=== PATIENT | female | born 1965 ===

== ENCOUNTER 2023-06-10 20:41 | Emergency (ER) | payer OTHER, SELFPAY ==
[2023-06-10 20:48] VITALS: BP 122/71; PULSE 74; RESP 16; TEMP 36.2; O2SAT 98; BMI 21.5
--- NOTE | 2023-06-10 22:39 | ED_ITS ---
HPI - General Adult General Chief complaint: General Medical Stated complaint: bloody nose for 30mins Time Seen by Provider: 06/10/23 22:15 Source: patient and family Mode of arrival: ambulatory Limitations: no limitations History of Present Illness HPI narrative: 57 yo female takes a baby aspirin but no blood thinners here with c/o bloody nose initially from R then to L - continued as she kept blowing clots out of her nose. No trauma or history of this no known bleeding disoders. stopped while in waiting room. MD complaint: epistaxis Onset (ago): hour(s) (1) Location: face Radiation: non-radiation Severity: moderate Relieving factors: other (applying pressure) Exacerbating factors: other (blowing nose) Associated symptoms: denies other symptoms Treatments prior to arrival: none Related Data Allergies Allergy/AdvReac Type Severity Reaction Status Date / Time cefaclor [From Ceclor] Allergy Mild Rash Verified 06/10/23 20:57 codeine Allergy Vomiting Verified 06/10/23 20:57 apricots Allergy Rash Uncoded 06/10/23 20:57 Review of Systems 2 Review of Systems: Constitutional : No Fever, No Chills ENT/Mouth : No Ear Pain, No Nasal Congestion, positive nose bleed Eyes: No Eye Pain, No Swelling, No Redness Cardiovascular : No Chest Pain, No SOB Respiratory : No Cough, No Sputum Gastrointestinal : No Nausea, No Vomiting, No Diarrhea Genitourinary : No Dysuria, No Hematuria Musculoskeletal : No joint pain, No Myalgias Skin : No Skin Lesions, No rash Neuro : No Weakness, No Numbness, No headache Psych : No Anxiety/Panic, No Depression All other systems reviewed and are negative [facility] Past Medical History Attestation statement: The following information was validated with the patient. Medical History Multiple sclerosis Social History Social History (Updated 06/10/23 @ 22:47 by Marina Haider DO) Alcohol intake: current Alcohol intake frequency: 0-2 drinks per day Alcohol type: wine Patient Tobacco Use Status: Tobacco use Unknown Smoked in Last 30 Days: Yes Use of substances other than those prescribed or required for medical reasons: No Advance Directives: No Advance Directives Information Provided: No Patient : No Physical Exam ED Vital Signs: Vital Signs - 24 hr 06/10/23 20:48 06/10/23 23:30 Temperature 97.1 F 98.4 F Pulse Rate 74 57 Respiratory Rate 16 16 Blood Pressure 122/71 131/72 Pulse Oximetry 98 98 Oxygen Delivery Method Room Air Room Air BMI result Body Mass Index 21.5 Appearance: Alert. Oriented X3. No acute distress. Eyes: Pupils equal, round and reactive to light. ENT: Pharynx normal no blood in oropharynx, L nares no blood noted, R nares mid septum there is small crack and bloody area noted with raised bump noted ?source otherwise no other area noted, no active bleeding seen Neck: Normal inspection. Neck supple. CVS: Normal heart rate and rhythm. Pulses normal. Respiratory: No respiratory distress. Breath sounds normal. Abdomen: Soft and non-tender. Skin: Skin warm and dry. Normal skin color. Extremities: No lower extremity edema. Neuro: Oriented X 3. No motor deficit. No sensory deficit. Course Course Course Narrative: doing well no further bleeding, BP stable Medications Administered Discontinued Medications Generic Name Dose Route Start Last Admin Trade Name Shyanne PRN Reason Stop Dose Admin Oxymetazoline HCl 2 spray 06/10/23 22:31 06/10/23 23:02 Oxymetazoline Hcl 0.05 % Nasal 15 Ml Blue NOSTRIL-B 06/10/23 22:32 2 spray ONCE ONE Administration Silver Nitrate 1 appl 06/10/23 22:31 06/10/23 23:03 Silver Nitrate Applicator Stick..Ea. TOPICAL 06/10/23 22:32 1 appl ONCE ONE Administration Procedures Epistaxis Control Time Out Performed: Yes Nostril: Yes right Nose prepped with: Yes oxymetazoline Direct inspection: Yes anterior source identified Direct inspection method: Yes nasal rhinoscope Epistaxis treatment: Yes silver nitrate cautery Results of treatment: Yes bleeding controlled and Yes treatment well tolerated Complications: Yes none Medical Decision Making Medical Decision Making MDM Narrative: 57 yo female with hx of MS who takes a baby ASA but no thinners here with R sided bloody nose that his now resolved - there is a site on the septum that I think is the source at this time will apply afrin and cauterize - will obtain CBC and INR. monitor and instruct no further nose bleeds. She does not report any shooting of blood across the room or blood coming out of mouth to suggest brisk posterior bleed. Differential Diagnosis Differential Diagnoses: The differential diagnosis associated with the presentation includes anterior epistaxis, posterior epistaxis, low platelets Admission/Observation Consideration of admission/observation: Escalation of care including admission/observation considered stable VS, labs stable, bleeding stopped can be observed as outpatient Lab Data MDM Lab Attestation statement: I reviewed the patient's lab results. 06/10/23 22:48 Labs: Lab Results 06/10/23 06/10/23 Range/Units 22:47 22:48 WBC 7.8 (4.8-10.8) X10*3/uL RBC 3.96 L (4.20-5.50) X10*6/uL Hgb 13.0 (12.0-16.0) g/dl Hct 38.9 (37.0-47.0) % MCV 98.2 H (80.0-98.0) fL MCH 32.8 (27.0-33.0) pg MCHC 33.4 (31.0-35.0) g/dl RDW 12.2 (11.0-16.0) % Plt Count 275 (160-400) X10*3/uL MPV 9.7 (9.4-12.3) fL Absolute Nucleated RBC 0.000 (0.0-0.012) X10*3/uL Nucleated RBC % (auto) 0.0 (0.0-0.2) /100WBC PT 12.1 (11.1-13.3) SEC INR 1.0 (0.9-1.1) Independent Historian Clinical information obtained from an independent historian. History obtained from or confirmed by: Friend Discharge Plan Discharge Clinical Impression: Acute anterior epistaxis Patient Disposition: Home, Self-Care Instructions: Nosebleed (ED) Additional Instructions: no aspirin for 3 days. no nose blowing for 3 days. hold pressure for 3 minutes if bleeding starts. return for worsening bleeding, dizziness, chest pain, trouble breathing, severe headaches. you can follow up with ENT as needed if you get recurrent nose bleeds. blood counts and coags normal Referrals: Tommy Nazario [Physician] - 2 weeks (as needed)
[2023-06-10 22:57] LABS: Hematocrit 38.9 % (37.0-47.0); Mean Corpuscular HGB Conc 33.4 g/dl (31.0-35.0); Mean Corpuscular Hemoglobin 32.8 pg (27.0-33.0); Mean Corpuscular Volume 98.2 fL (80.0-98.0); Mean Platelet Volume 9.7 fL (9.4-12.3); Platelet Count 275 X10*3/uL (160-400); Red Blood Count 3.96 X10*6/uL (4.20-5.50); Red Cell Distribution Width 12.2 % (11.0-16.0); White Blood Count 7.8 X10*3/uL (4.8-10.8)
[2023-06-10] MEDS: Oxymetazoline HCl 0.05 % Nasal 15 ML SPRAY 2 SPRAY NOSTRIL-B (23:02)
[2023-06-10] MEDS: Silver Nitrate Applicator STICK..EA. 1 APPL TOPICAL (23:03)
[2023-06-10 23:30] VITALS: BP 131/72; PULSE 57; RESP 16; TEMP 36.9; O2SAT 98
--- NOTE | 2023-06-10 23:32 | MHC.EDTECH ---
THIS PCT JUST ASSUMED CARE OF PT ,VITALS SIGN TAKEN ,PT HAS A VISITOR AT BED SIDE .
[2023-06-10 23:40] LABS: Prothrombin Time 12.1 SEC (11.1-13.3)
== END 2023-06-10 23:52 | disposition home or self-care (01) ==
PROVIDERS: Emergency Provider Emergency Medicine; PCP Internal Medicine
DX: R04.0 Epistaxis (principal); Z79.899 Other long term (current) drug therapy
CPT/HCPCS: 30901; 36415; 85027; 85610; 99284

== ENCOUNTER 2023-06-30 21:57 | Inpatient (IN) | payer OTHER, SELFPAY ==
--- NOTE | 2023-06-30 | ECG_ITS ---
Test Reason : CP Blood Pressure : / mmHG Vent. Rate : 103 BPM Atrial Rate : 103 BPM P-R Int : 138 ms QRS Dur : 100 ms QT Int : 330 ms P-R-T Axes : 018 -42 019 degrees QTc Int : 432 ms Sinus tachycardia Left anterior fascicular block Low voltage QRS Incomplete right bundle branch block Cannot rule out Anterior infarct , age undetermined Abnormal ECG No previous ECGs available Referred By: Generic ED Physician Electronically Signed By:ALIZA ACUÑA MD
--- NOTE | ~2023-06-30 | XR_ITS ---
EXAMINATION: XR CHEST CLINICAL INFORMATION: Pain COMPARISON: None available. TECHNIQUE: Frontal view of the chest was obtained. FINDINGS: Right mid to lower lung and left midlung left lower lung opacities may be consistent with areas of atelectasis or infiltrate. An element of interstitial edema cannot be excluded. Prominent cardiac silhouette. Ill-defined hilar structures. There is no effusion. XR/XR chest 1V IMPRESSION: Bilateral mid to lower lung opacities could be areas of atelectasis/infiltrate or possibly edema. There is congestion here centrally
--- NOTE | ~2023-06-30 | XR_ITS ---
EXAMINATION: XR CHEST CLINICAL INFORMATION: Elevated BNP COMPARISON: 06/30/2023 TECHNIQUE: Frontal view of the chest was obtained. FINDINGS: Heart size remains upper limits of normal, mediastinum unremarkable. Improved vascular congestion. Resolution right base increased markings. Persistent mild increased markings retrocardiac region. Bony structures are intact. XR/XR chest 1V IMPRESSION: Improved vascular congestion. Residual left base opacities, likely atelectasis.
--- NOTE | ~2023-06-30 | CT_ITS ---
EXAMINATION: CT HEAD WITHOUT CONTRAST CLINICAL INFORMATION: Confusion, hallucinations COMPARISON: None available. TECHNIQUE: Contiguous axial imaging was performed from the skull base to vertex without intravenous administration of contrast. This CT examination was performed using dose optimization techniques as appropriate, variously including the following: *Automated exposure control *Adjustment of mA and/or kV according to patient size (this includes techniques or standardized protocols for targeted exams where dose is matched to indication/reason for exam; i.e. extremities or head) *Use of iterative reconstruction technique DLP: 700 mGy-cm FINDINGS: There is no midline shift. There is no mass effect. There is no hemorrhage. The basal cisterns appear patent. The posterior fossa is grossly within normal limits. No extra-axial collection. The li-white matter demonstrates decreased attenuation in the white matter in the left parietal region could represent small vessel ischemic changes. Partially visualized sinuses demonstrate some mild sinus disease. CT/CT head/brain wo IV con IMPRESSION: No acute finding. Some decreased attenuation is noted in the white matter left parietal could represent small vessel ischemic change. Given the history I would consider MR to fully evaluate
[2023-06-30 23:06] VITALS: BP 100/66; PULSE 97; RESP 29; TEMP 36.8; O2SAT 95; BMI 23.9
--- NOTE | 2023-06-30 23:23 | ED_ITS ---
HPI - General Adult General Chief complaint: General Medical Stated complaint: Chest pain, COVID positive 1 week Time Seen by Provider: 06/30/23 22:43 Source: patient Mode of arrival: ambulatory Limitations: no limitations History of Present Illness HPI narrative: 58 yo female with PMH of overactive bladder, depression, HTN, GERD, MS who is vaccinated against COVID x 4 . Symptoms of COVID started on Sunday and tested positive on Sunday. Was started on paxlovid is on day 3 - states this is her 2nd round of paxlovid and tolerated it in the past. Here with c/o feeling weak, sore body her skin is hypersensitive to touch, chest tightness and feeling short of breath, she also feels off cognitively and was hallucinating last night when she thought two men were outside. Her spouse is here and is concerned - no focal deficits but she is off. MD complaint: fatigue, covid symptoms. Onset (ago): week(s) (5 but cognitive stuff started about 24 hours ago ) Radiation: non-radiation Severity: moderate Quality: aching and constant Pain Consistency: constant Relieving factors: rest Exacerbating factors: movement Associated symptoms: confusion, chest pain, loss of appetite, malaise, nausea/vomiting and weakness Treatments prior to arrival: other (paxlovid) Related Data Allergies Allergy/AdvReac Type Severity Reaction Status Date / Time cefaclor [From [facility]] Allergy Mild Rash Verified 06/10/23 20:57 codeine Allergy Vomiting Verified 06/10/23 20:57 apricots Allergy Rash Uncoded 06/10/23 20:57 Review of Systems 2 Review of Systems: Constitutional : No Fever, No Chills, pos Fatigue, pos malaise ENT/Mouth : No sore throat, No Rhinorrhea Eyes: No Eye Pain, No Swelling, No Redness Cardiovascular : pos Chest Pain, No SOB, No Dyspnea on Exertion Respiratory : pos Cough, No Sputum Gastrointestinal : pos Nausea, No Vomiting, No Diarrhea, No abdominal Pain Genitourinary : No Dysuria, No Urinary Frequency, No Hematuria, Musculoskeletal : No joint pain, No Myalgias, No Joint Swelling Skin : No Skin Lesions, No rash Neuro : pos Weakness, No Numbness, No Dizziness, positive Headache, pos confusion Psych : No Anxiety/Panic, No Depression All other systems reviewed and are negative [facility] Past Medical History Attestation statement: The following information was validated with the patient. Source: old records reviewed Medical History Multiple sclerosis Social History Social History Alcohol intake: current Alcohol intake frequency: 0-2 drinks per day Alcohol type: wine Patient Tobacco Use Status: Tobacco use Unknown Smoked in Last 30 Days: No Use of substances other than those prescribed or required for medical reasons: No Advance Directives: No Advance Directives Information Provided: Yes Patient : No Physical Exam ED Vital Signs: Vital Signs - 24 hr 06/30/23 23:06 07/01/23 01:08 07/01/23 01:22 Temperature 98.3 F Pulse Rate 97 95 Respiratory Rate 29 H 23 H Blood Pressure 100/66 95/60 Pulse Oximetry 95 85 L 87 L Oxygen Delivery Method Room Air Nasal Cannula Room Air Oxygen Flow Rate 2 07/01/23 01:24 Temperature Pulse Rate Respiratory Rate Blood Pressure Pulse Oximetry 93 Oxygen Delivery Method Nasal Cannula Oxygen Flow Rate 3 BMI result Body Mass Index 23.9 Appearance: Alert. Oriented X3. No acute distress. Eyes: Pupils equal, round and reactive to light. ENT: Pharynx normal. Neck: Normal inspection. Neck supple. CVS: Normal heart rate and rhythm. Pulses normal. Respiratory: No respiratory distress. Breath sounds rales bilaterally Abdomen: Soft and mild distention Skin: Skin warm and dry. pale skin color. Normal skin turgor. Extremities: 1+ bilateral pitting lower extremity edema. No calf ttp Neuro: Oriented X 3. No motor deficit. No sensory deficit. Medications Administered Discontinued Medications Generic Name Dose Route Start Last Admin Trade Name Freq PRN Reason Stop Dose Admin Cyclobenzaprine HCl 5 mg 07/01/23 00:46 07/01/23 00:50 Cyclobenzaprine Hcl 10 Mg Tablet PO 07/01/23 00:47 5 mg ONCE ONE Administration Furosemide 20 mg 07/01/23 00:32 07/01/23 00:48 Furosemide 20 Mg/2 Ml Vial IVPUSH 07/01/23 00:33 10 mg ONCE ONE Administration Protocol Sodium Chloride 1,000 mls @ 999 mls/hr 06/30/23 23:30 07/01/23 00:02 Ns IV 07/01/23 00:30 0 mls/hr .Q1H1M KARISHMA Infusion Ondansetron HCl 4 mg 06/30/23 23:17 06/30/23 23:27 Ondansetron Hcl 4 Mg/2 Ml Vial IVPUSH 06/30/23 23:18 4 mg ONCE ONE Administration Procedures Procedure Narrative Procedure Narrative: bedside ECHO no pericardial effusion but there is poor squeeze noted seems vasquez depressed to me Medical Decision Making Medical Decision Making [facility] Narrative: 58 yo female with PMH of overactive bladder, depression, HTN, GERD, MS who is vaccinated against COVID x 4 here with covid now with chest pain and dyspnea along with weakness, confusion, fatigue at this time basic labs, zofran, CXR, ddimer, troponin, EKG and CT head given confusion - she has no focal deficits. Differential Diagnosis Differential Diagnoses: The differential diagnosis associated with the presentation includes lyte abnormality COVID encephalopathy, dehydration, paxlovid reaction, VTE, CHF Admission/Observation Consideration of admission/observation: Escalation of care including admission/observation considered admit for new onset CHF picture Consult Healthcare Provider Management of the patient was discussed with: Hospitalist (agrees to admit) Lab Data [facility] Lab Attestation statement: I reviewed the patient's lab results. 06/30/23 23:14 06/30/23 23:14 Labs: Lab Results 06/30/23 Range/Units 23:14 WBC 10.6 (4.8-10.8) X10*3/uL RBC 3.80 L (4.20-5.50) X10*6/uL Hgb 12.0 (12.0-16.0) g/dl Hct 34.7 L (37.0-47.0) % MCV 91.3 (80.0-98.0) fL MCH 31.6 (27.0-33.0) pg MCHC 34.6 (31.0-35.0) g/dl RDW 11.9 (11.0-16.0) % Plt Count 305 (160-400) X10*3/uL MPV 9.3 L (9.4-12.3) fL Immature Gran % (Auto) 0.4 (0.0-0.4) % Neut % (Auto) 84.2 H (45-73) % Lymph % (Auto) 5.1 L (20-40) % [place] % (Auto) 9.9 (2-11) % Eos % (Auto) 0.1 (0-4) % Baso % (Auto) 0.3 (0-2) % Lymph # (Auto) 0.5 L (1.2-4.9) X10*3/uL [place] # (Auto) 1.1 (0.1-1.2) X10*3/uL Eos # (Auto) 0.0 (0.0-0.4) X10*3/uL Baso # (Auto) 0.0 (0.0-0.2) X10*3/uL Abs Immat Gran (auto) 0.04 H (0.00-0.03) X10*3/uL Absolute Neuts (auto) 8.9 H (2.0-8.3) x10*3/uL Absolute Nucleated RBC 0.000 (0.0-0.012) X10*3/uL Nucleated RBC % (auto) 0.0 (0.0-0.2) /100WBC PT 12.6 (11.1-13.3) SEC INR 1.0 (0.9-1.1) APTT 27.8 (26.0-36.4) SEC D-Dimer High Sensitivty 191 NG/ML Sodium 134 L (135-145) mmol/L Potassium 5.0 (3.3-5.1) mmol/L Chloride 100 (96-108) mmol/L Carbon Dioxide 21 L (22-29) mmol/L Anion Gap 18 (12-20) BUN 28 H (9-16) mg/dL Creatinine 0.87 (0.5-1.4) mg/dL Estim Creat Clear Calc 60.9 Estimated GFR > 60 Random Glucose 119 H (60-115) mg/dL Calcium 9.7 (8.4-10.2) mg/dL Magnesium 1.8 (1.6-2.6) mg/dL Total Bilirubin 0.4 (0.0-1.0) mg/dL AST 20 (5-31) U/L ALT 12 (0-31) U/L Alkaline Phosphatase 67 (39-117) U/L Total Creatine Kinase 73 (26-140) U/L Troponin I High Sens 23.8 H (<3.5-17.0) ng/L B-Natriuretic Peptide 1174 H (<100) pg/mL Total Protein 7.2 (6.5-8.0) g/dL Albumin 4.0 (3.5-5.0) g/dL COVID-19 (CHARLINE) Positive A (Negative) COVID-19 Clin Com See Note Independent Interpretation I performed an independent interpretation of an: EKG, Plain X-Ray (edema) and CT Scan (no ICH) Interpretation: Rate: 103 Rhythm: sinus tach [place]: left Normal P waves. Normal SHIVA. incomplete RBBB ST T wave : normal no REED , q waves inf leads qTC: normal prior studies: no acute ischemia The study has been interpreted contemporaneously by me. . Radiology Impression Discussion of test interpretation with radiology: I have reviewed the radiologist's reading. Independent Historian Clinical information obtained from an independent historian. History obtained from or confirmed by: Spouse External Record Review External record reviewed: Inpatient record Discharge Plan Discharge Clinical Impression: Hallucinations, Encephalopathy due to COVID-19 virus Cardiomyopathy Qualifiers: Cardiomyopathy type: unspecified Qualified Code(s): I42.9 - Cardiomyopathy, unspecified Pulmonary edema Qualifiers: Chronicity: acute Qualified Code(s): J81.0 - Acute pulmonary edema Patient Disposition: Admitted As Inpatient
[2023-06-30 23:27] LABS: MANUAL DIFF FLAG NO
[2023-06-30] MEDS: 0.9 % Sodium Chloride 1,000 ML 999 ML IV (23:27)
[2023-06-30] MEDS: ondansetron HCL 4 MG/2 ML VIAL IVPUSH (23:27)
[2023-06-30 23:30] LABS: Basophils Percent Auto 0.3 % (0-2); Eosinophils Percent Auto 0.1 % (0-4); Hematocrit 34.7 % (37.0-47.0); Imm Gran Abs Auto 0.04 X10*3/uL (0.00-0.03); Imm Gran Pct Auto 0.4 % (0.0-0.4); Lymphocytes Absolute Auto 0.5 X10*3/uL (1.2-4.9); Lymphocytes Percent Auto 5.1 % (20-40); Mean Corpuscular HGB Conc 34.6 g/dl (31.0-35.0); Mean Corpuscular Hemoglobin 31.6 pg (27.0-33.0); Mean Corpuscular Volume 91.3 fL (80.0-98.0); Mean Platelet Volume 9.3 fL (9.4-12.3); Monocytes Absolute Auto 1.1 X10*3/uL (0.1-1.2); Monocytes Percent Auto 9.9 % (2-11); Neutrophils Absolute Auto 8.9 x10*3/uL (2.0-8.3); Neutrophils Percent Auto 84.2 % (45-73); Platelet Count 305 X10*3/uL (160-400); Red Cell Distribution Width 11.9 % (11.0-16.0); White Blood Count 10.6 X10*3/uL (4.8-10.8)
[2023-06-30 23:44] LABS: Alanine Aminotransferase 12 U/L (0-31); Alkaline Phosphatase 67 U/L (39-117); Anion Gap 18 (12-20); Aspartate Amino Transferase 20 U/L (5-31); Bilirubin Total 0.4 mg/dL (0.0-1.0); Blood Urea Nitrogen 28 mg/dL (9-16); Calcium 9.7 mg/dL (8.4-10.2); Carbon Dioxide 21 mmol/L (22-29); Chloride 100 mmol/L (96-108); Creatinine Clr Calc Pharmacy 60.9; Estimated Glomerular Filt Rate > 60; Glucose Random 119 mg/dL (60-115); Magnesium 1.8 mg/dL (1.6-2.6); Prothrombin Time 12.6 SEC (11.1-13.3); Sodium 134 mmol/L (135-145); Total Protein 7.2 g/dL (6.5-8.0)
[2023-06-30 23:46] LABS: Partial Thromboplastin Time 27.8 SEC (26.0-36.4)
[2023-06-30 23:48] LABS: B Type Natriuretic Peptide 1174 pg/mL (<100)
[2023-06-30 23:51] LABS: Troponin-I High Sensitivity 23.8 ng/L (<3.5-17.0)
[2023-06-30 23:58] LABS: COVID-19 Test Positive (Negative); IDNOW Serial# 6674DD1D
[2023-07-01] VITALS (10 sets, daily range): BP systolic 95–109; BP diastolic 56–68; PULSE 81–98; RESP 20–36; TEMP 36.4–37.2; O2SAT 85–94
[2023-07-01 00:29] LABS: D Dimer High Sensitivity 191 NG/ML
[2023-07-01] MEDS: Furosemide 20 MG/2 ML VIAL IVPUSH (00:48)
[2023-07-01] MEDS: Cyclobenzaprine HCl 10 MG TABLET 5 MG PO (00:50)
--- NOTE | 2023-07-01 00:56 | PC.NURSE ---
pt medicated with 10 mg of lasix ivp, per Dr. Haider
--- NOTE | 2023-07-01 01:23 | PC.NURSE ---
pt assessed. c/o increased sob, o2 87% on room air, placed on 3 liters of oxygen NC. Dr. Haider aware, will cont to monitor
--- NOTE | 2023-07-01 01:25 | P.HPHOSP_ITS ---
History of Present Illness Date of Service: 07/01/23 Chief Complaint: Dyspnea This is a 58-year-old female with pertinent history of MS, mood disorder, essential hypertension, gastroesophageal reflux disease who presents to the emergency department for evaluation of dyspnea. Patient states she has been having dyspnea, worse with exertion that started 5 days prior to presentation. Patient tested positive for COVID-19 on Sunday. States she has been vaccinated x4 for COVID-19. Also has been having cough and chills. Endorses orthopnea and generalized weakness. No history of congestive heart failure and has never been on diuretics. No fever, abdominal discomfort, changes in urinary or bowel habits. In the emergency department, imaging with pulmonary edema and BNP found to be elevated. Patient was found to be hypoxemic and requiring 3 L supplemental oxygen Review of Systems 2 Constitutional: Constitutional: Reports body ache(s), Reports chills, Reports fatigue, Reports lethargy and Reports weakness Cardiovascular: Cardiovascular: Reports dyspnea, Reports dyspnea on exertion and Reports orthopnea Respiratory: Respiratory: Reports cough, Reports dyspnea and Reports dyspnea on exertion Gastrointestinal: Gastrointestinal: Reports no additional gastrointestinal complaints Genitourinary: Genitourinary: Reports no additional female genitourinary complaints Neurologic: Reports weakness Endocrine: Endocrine: Reports fatigue PMFSH Medical History Essential hypertension Mood disorder Multiple sclerosis Pertinent family history: No family history of early CAD Social History Alcohol intake: current Alcohol intake frequency: 0-2 drinks per day Alcohol type: wine Patient Tobacco Use Status: Tobacco use Unknown Smoked in Last 30 Days: No Use of substances other than those prescribed or required for medical reasons: No Advance Directives: No Advance Directives Information Provided: Yes Patient : No Meds Allergies Allergy/AdvReac Type Severity Reaction Status Date / Time cefaclor [From Ceclor] Allergy Mild Rash Verified 06/10/23 20:57 codeine Allergy Vomiting Verified 06/10/23 20:57 apricots Allergy Rash Uncoded 06/10/23 20:57 Physical Exam 2 Vital Signs and Narrative: Vital Signs: Last Vital Signs Temp 98.3 F 06/30/23 23:06 Pulse 95 07/01/23 01:08 Resp 23 H 07/01/23 01:08 BP 95/60 07/01/23 01:08 Pulse Ox 93 07/01/23 01:24 O2 Del Method Nasal Cannula 07/01/23 01:24 O2 Flow Rate 3 07/01/23 01:24 BMI result Body Mass Index 23.9 Middle-aged female lying in bed in mild distress on supplemental oxygen Neck supple Regular rate and rhythm, S1-S2 heard Bilateral crackles without wheezing Abdomen soft nontender, no guarding, no rigidity Patient is awake, alert and oriented to self, place, time and person ; no focal motor deficit Psych: Normal mood Bilateral pedal edema Results Labs 06/30/23 23:14 06/30/23 23:14 Labs: Laboratory Results - last 24 hr 06/30/23 23:14 MCV 91.3 MCH 31.6 MCHC 34.6 RDW 11.9 Plt Count 305 MPV 9.3 L Immature Gran % (Auto) 0.4 Neut % (Auto) 84.2 H Lymph % (Auto) 5.1 L [place] % (Auto) 9.9 Eos % (Auto) 0.1 Baso % (Auto) 0.3 Lymph # (Auto) 0.5 L [place] # (Auto) 1.1 Eos # (Auto) 0.0 Baso # (Auto) 0.0 Abs Immat Gran (auto) 0.04 H Absolute Neuts (auto) 8.9 H Absolute Nucleated RBC 0.000 Nucleated RBC % (auto) 0.0 PT 12.6 INR 1.0 APTT 27.8 D-Dimer High Sensitivty 191 Anion Gap 18 Estim Creat Clear Calc 60.9 Estimated GFR > 60 Random Glucose 119 H Calcium 9.7 Magnesium 1.8 Total Bilirubin 0.4 AST 20 ALT 12 Alkaline Phosphatase 67 Total Creatine Kinase 73 B-Natriuretic Peptide 1174 H Total Protein 7.2 Albumin 4.0 COVID-19 (CHARLINE) Positive A COVID-19 Clin Com See Note Imaging Radiologist's Impressions: Impressions Chest X-Ray 06/30/23 23:55 IMPRESSION: Bilateral mid to lower lung opacities could be areas of atelectasis/infiltrate or possibly edema. There is congestion here centrally Head CT 07/01/23 00:00 IMPRESSION: No acute finding. Some decreased attenuation is noted in the white matter left parietal could represent small vessel ischemic change. Given the history I would consider MR to fully evaluate Assessment and Plan (1) Congestive heart failure: Status: Acute (2) Acute hypoxemic respiratory failure: Status: Acute Plan This is a 58-year-old female with pertinent history of MS, mood disorder, essential hypertension, gastroesophageal reflux disease who presents to the emergency department for evaluation of dyspnea. #. Acute hypoxemic respiratory failure secondary to new onset congestive heart failure: Will admit patient and initiate IV Lasix. Strict I's and O's. Obtaining echocardiogram. Consulting Cardiology, appreciate assistance #. COVID-19 infection: Initiating Decadron as patient with hypoxemia. Droplet and contact precautions #. Mood disorder. Continue home mood stabilizers #. Gastroesophageal reflux disease: On PPI Med rec pending DVT prophylaxis: Lovenox Full code Admit as inpatient and will require two night minimum hospital stay for supplemental oxygen and IV Lasix. Specialist consult pending Time Spent With Patient Time: Total time managing care of this patient today ____ minutes. Quality Stroke Does the patient have a stroke diagnosis?: No VTE Prior VTE?: No VTE Risk Level:: Medical - moderate - high VTE Device Contraindication: Treatment Not Indicated VTE Drug Contraindication: N/A - Med Ordered
[2023-07-01] MEDS: Enoxaparin Sodium 40 MG/0.4 ML SYRINGE SUBCUT (01:43)
[2023-07-01 02:12] LABS: Troponin-I High Sensitivity 21.5 ng/L (<3.5-17.0)
[2023-07-01 05:38] LABS: MANUAL DIFF FLAG NO
[2023-07-01 05:46] LABS: Basophils Percent Auto 0.3 % (0-2); Eosinophils Percent Auto 0.1 % (0-4); Hematocrit 35.5 % (37.0-47.0); Imm Gran Abs Auto 0.08 X10*3/uL (0.00-0.03); Imm Gran Pct Auto 0.7 % (0.0-0.4); Lymphocytes Absolute Auto 0.4 X10*3/uL (1.2-4.9); Lymphocytes Percent Auto 3.1 % (20-40); Mean Corpuscular HGB Conc 33.8 g/dl (31.0-35.0); Mean Corpuscular Hemoglobin 31.2 pg (27.0-33.0); Mean Corpuscular Volume 92.2 fL (80.0-98.0); Mean Platelet Volume 9.9 fL (9.4-12.3); Monocytes Absolute Auto 0.9 X10*3/uL (0.1-1.2); Monocytes Percent Auto 7.7 % (2-11); Neutrophils Absolute Auto 9.8 x10*3/uL (2.0-8.3); Neutrophils Percent Auto 88.1 % (45-73); Platelet Count 282 X10*3/uL (160-400); Red Blood Count 3.85 X10*6/uL (4.20-5.50); Red Cell Distribution Width 11.8 % (11.0-16.0); White Blood Count 11.1 X10*3/uL (4.8-10.8)
[2023-07-01] MEDS: traMADoL HCL 50 MG TABLET PO (06:11)
[2023-07-01 06:14] LABS: Anion Gap 16 (12-20); Blood Urea Nitrogen 19 mg/dL (9-16); Calcium 8.7 mg/dL (8.4-10.2); Carbon Dioxide 20 mmol/L (22-29); Chloride 103 mmol/L (96-108); Creatinine Clr Calc Pharmacy 69.6; Estimated Glomerular Filt Rate > 60; Glucose Random 108 mg/dL (60-115); Potassium 4.3 mmol/L (3.3-5.1); Sodium 135 mmol/L (135-145)
--- NOTE | 2023-07-01 06:14 | PC.NURSE ---
pt assessed for pain 04/26, medicated with tramadol po
--- NOTE | 2023-07-01 07:25 | MHC.EDTECH ---
O2 turned up to 2 liters after patient was at 88 on RA. 95 with the 2 liters.
[2023-07-01] MEDS: 0.9 % Sodium Chloride Flush 3 ML SYRINGE IVFLUSH ×2 (07:56→21:18)
[2023-07-01 08:35] LABS: C Reactive Protein 3.45 mg/dL (< or = 0.50); Lactate Dehydrogenase 297 U/L (122-220)
[2023-07-01 08:51] LABS: Ferritin 154 ng/mL (10-250)
--- NOTE | 2023-07-01 09:16 | PHA.MEDREC ---
Pharmacy Consult ? Medication Reconciliation Pharmacy has completed the medication reconciliation. spoke with patient to confirm medications. She only finished half of paxlovid course and and last took yesterday night. She reported taking pumpkin seed oil capsules daily but she does not know the strength.
[2023-07-01] MEDS: Furosemide 40 MG/4 ML VIAL IVPUSH (10:06)
[2023-07-01] MEDS: dexAMETHasone 6 MG TABLET PO (10:06)
[2023-07-01] MEDS: Remdesivir 200 MG in 0.9 % Sodium Chloride 210 ML 105 MG IV (10:30)
[2023-07-01] MEDS: PARoxetine HCL 40 MG TABLET PO (11:10)
[2023-07-01] MEDS: buPROPion HCl XL 150 MG TAB.ER.24H PO (11:10)
[2023-07-01] MEDS: Multivitamin TABLET 1 TAB PO (11:10)
[2023-07-01] MEDS: NIFEdipine ER 90 MG TAB.ER.24 PO ×2 (11:10→21:14)
[2023-07-01] MEDS: Hydroxychloroquine Sulfate 200 MG TABLET 400 MG PO (11:10)
--- NOTE | 2023-07-01 11:38 | P.EN_ITS ---
Event Note Date of Service: 07/01/23 Event Note: Day hospitalist update S: short of breath, edematous no fever O: T 98.4, P 98, R 28, BP 99/65, SaO2 90 on RA Gen: in no acute distress HEENT: sclera anicteric, moist mucus membranes Neck: supple, JVD Lungs: diminished Heart: regular rate and rhythm, no murmurs Abd: soft, non-tender, non-distended Ext: trace lower extremity edema Skin: warm/well-perfused Neuro: alert and oriented x3, no focal findings Psych: appropriate affect A/P d1 58yo F with MS and SLE, HTN, GERD, mood disorder presenting with dyspnea + hypoxia, positive Covid-19 test 5d prior to presentation Covid-19 infection - dexamethasone 06/30-07/09/23, remdesivir 06/30-07/04/23, trend CRP suspected new-onset CHF, unknown EF - diurese with furosemide, follow I/O + lytes + BNP, consult Cardiology, TTE acute hypoxic resp failure - wean O2 as tolerated SLE - continue hydroxychloroquine GERD - PPI HTN - continue nifedipine mood disorder - trazodone, paroxetine, bupropion VTE ppx - LMWH dispo - eventual home In my clinical judgment, the patient requires continued inpatient hospitali zation for the following reasons: hypoxia, IV diuresis Time Spent With Patient Time: Total time managing care of this patient today __40__ minutes.
--- NOTE | 2023-07-01 12:46 | P.CONCA_ITS ---
History of Present Illness History of Present Illness Date of Service: 07/01/23 Requesting physician: Margot Hoang Chief complaint: Dyspnea Narrative: [age] year female with complex medical issues including lupus, crest syndrome, hypertension, mood disorder and recent COVID-19 infection starting a week ago. She was complaining of shortness of breath and was having hyperesthesia all over her trunk and arms. No obvious rash. She was taking Paxil with. She was noted to be in congestive heart failure and was admitted for further assessment. She is saying she has never been told that she has pulmonary hypertension. She also has multiple sclerosis. Currently on supplemental oxygen 4 liters/minute. Chest x-ray is showing venous congestion. [facility] Past Medical History Medical History Essential hypertension Mood disorder Multiple sclerosis Social History Social History Household Members: Spouse Housing: House Do you presently have visiting nurse or other home services: No Alcohol intake: current Alcohol intake frequency: 0-2 drinks per day Alcohol type: wine Patient Tobacco Use Status: Current everyday Tobacco user Tobacco use type: Cigarette Cigarette Packs Per Day: 0.5 Cigarettes Per Day: 10.0 Smoked in Last 30 Days: Yes Use of substances other than those prescribed or required for medical reasons: No Have you been hit, kicked, punched, or otherwise hurt by someone within the past year? If so, by whom?: No Do you feel safe in your current relationship?: Yes Is there a partner from a previous relationship who is making you feel unsafe now?: No Are you made to feel afraid or neglected: No Advance Directives: No Advance Directives Information Provided: Yes Do you have thoughts of harming others: None Do you have a plan to hurt others: No Plan Recently lost weight without trying: Unsure Eating poorly because of decreased appetite: No Nutrition Risks: Poor intake 0-25% >4 days Patient : No : No Poor oral hygiene: No Meds Allergies Allergy/AdvReac Type Severity Reaction Status Date / Time cefaclor [From Ceclor] Allergy Mild Rash Verified 06/10/23 20:57 codeine Allergy Vomiting Verified 06/10/23 20:57 apricots Allergy Rash Uncoded 06/10/23 20:57 Active Medications: Current Medications Acetaminophen (Acetaminophen 325 Mg Tablet) 650 mg PO Q6H PRN PRN Reason: Pain, Mild (Pain Scale 1-3) Aspirin (Aspirin Enteric Coated 81 Mg Tablet.) 81 mg PO DAILY [facility] Bupropion HCl (Bupropion Hcl Xl 150 Mg Tab.Er.24h) 150 mg PO DAILY [facility] Last Admin: 07/01/23 11:10 Dose: 150 mg Dexamethasone (Dexamethasone 6 Mg Tablet) 6 mg PO DAILY [facility] Last Admin: 07/01/23 10:06 Dose: 6 mg Enoxaparin Sodium (Enoxaparin Sodium 40 Mg/0.4 Ml Syringe) 40 mg SUBCUT Q24H [facility] Last Admin: 07/01/23 01:43 Dose: 40 mg Furosemide (Furosemide 40 Mg/4 Ml Vial) 40 mg IVPUSH DAILY [facility]; Protocol Last Admin: 07/01/23 10:06 Dose: 40 mg Hydroxychloroquine Sulfate (Hydroxychloroquine Sulfate 200 Mg Tablet) 400 mg PO DAILY [facility] Last Admin: 07/01/23 11:10 Dose: 400 mg Remdesivir 200 mg/ Sodium (Chloride) 210 mls @ 105 mls/hr IV ONCE ONE Stop: 07/01/23 12:59 Last Admin: 07/01/23 10:30 Dose: 105 mls/hr Remdesivir 100 mg/ Sodium (Chloride) 230 mls @ 115 mls/hr IV Q24H [facility] Stop: 07/05/23 12:59 Melatonin (Melatonin 3 Mg Tablet) 6 mg PO BEDTIME PRN PRN Reason: Insomnia Multivitamins/Vitamin C (Multivitamin Tablet) 1 tab PO DAILY [facility] Last Admin: 07/01/23 11:10 Dose: 1 tab Nifedipine (Nifedipine Er 90 Mg Tab.Er.24) 90 mg PO BID [facility]; Protocol Last Admin: 07/01/23 11:10 Dose: 90 mg Omeprazole (Omeprazole 20 Mg Capsule.) 20 mg PO DAILY@0600 [facility] Ondansetron HCl (Ondansetron Hcl 4 Mg/2 Ml Vial) 4 mg IVPUSH Q8H PRN PRN Reason: Nausea and Vomiting Paroxetine HCl (Paroxetine Hcl 40 Mg Tablet) 40 mg PO DAILY [facility] Last Admin: 07/01/23 11:10 Dose: 40 mg Sodium Chloride (0.9 % Sodium Chloride Flush 3 Ml Syringe) 3 ml IVFLUSH QSHIFT [facility] Last Admin: 07/01/23 07:56 Dose: 3 ml Trazodone HCl (Trazodone Hcl 50 Mg Tablet) 150 mg PO BEDTIME [facility] Home Medications Medication Instructions Recorded Confirmed Last Taken Type aspirin 81 mg tablet,delayed 81 mg PO DAILY 07/01/23 07/01/23 Unknown History release bupropion HCl 150 mg 24 hr tablet, 150 mg PO QAM 07/01/23 07/01/23 Unknown History extended release cranberry 400 mg capsule 400 mg PO DAILY 07/01/23 07/01/23 Unknown History hydroxychloroquine 200 mg tablet 400 mg PO DAILY 07/01/23 07/01/23 Unknown History multivitamin 1 tab PO DAILY 07/01/23 07/01/23 Unknown History nifedipine 90 mg tablet,extended 90 mg PO BID 07/01/23 07/01/23 Unknown History release 24 hr nirmatrelvir 300 mg (150 mg See Rx Instructions .Route .COMPLEX 07/01/23 07/01/23 06/30/23 History x2)-ritonavir 100 mg tablet,dose pack (Paxlovid) pantoprazole 40 mg tablet,delayed 40 mg PO DAILY 07/01/23 07/01/23 Unknown History release paroxetine HCl 40 mg tablet 40 mg PO DAILY 07/01/23 07/01/23 Unknown History trazodone 150 mg tablet 150 mg PO BEDTIME 07/01/23 07/01/23 Unknown History Physical Exam 2 Vital Signs: Vital Signs: Last Vital Signs Temp 98.4 F 07/01/23 07:20 Pulse 95 07/01/23 11:17 Resp 28 H 07/01/23 10:12 BP 109/65 07/01/23 11:17 Pulse Ox 92 07/01/23 10:12 O2 Del Method Nasal Cannula 07/01/23 11:17 O2 Flow Rate 4 07/01/23 11:17 BMI result Body Mass Index 23.9 GENERAL APPEARANCE: in no acute distress, on supplemental oxygen NECK: no carotid bruit, ++ jugular venous distention. SKIN: no suspicious lesions, warm and dry. HEART: no murmurs, regular rate and rhythm. LUNGS: Crackles both bases to mid lung lynch. ABDOMEN: soft, nontender. EXTREMITIES: no edema. PERIPHERAL PULSES: equal. NEUROLOGIC: No gross deficits, AAO X 3 Objective Labs and Meds 07/01/23 05:11 07/01/23 05:11 Lab results: Laboratory Results - last 24 hr 06/30/23 07/01/23 07/01/23 23:14 01:41 05:11 WBC 10.6 11.1 H RBC 3.80 L 3.85 L Hgb 12.0 12.0 Hct 34.7 L 35.5 L MCV 91.3 92.2 MCH 31.6 31.2 MCHC 34.6 33.8 RDW 11.9 11.8 Plt Count 305 282 MPV 9.3 L 9.9 Immature Gran % (Auto) 0.4 0.7 H Neut % (Auto) 84.2 H 88.1 H Lymph % (Auto) 5.1 L 3.1 L Benson % (Auto) 9.9 7.7 Eos % (Auto) 0.1 0.1 Baso % (Auto) 0.3 0.3 Lymph # (Auto) 0.5 L 0.4 L Benson # (Auto) 1.1 0.9 Eos # (Auto) 0.0 0.0 Baso # (Auto) 0.0 0.0 Abs Immat Gran (auto) 0.04 H 0.08 H Absolute Neuts (auto) 8.9 H 9.8 H Absolute Nucleated RBC 0.000 0.000 Nucleated RBC % (auto) 0.0 0.0 PT 12.6 INR 1.0 APTT 27.8 D-Dimer High Sensitivty 191 Sodium 134 L 135 Potassium 5.0 4.3 Chloride 100 103 Carbon Dioxide 21 L 20 L Anion Gap 18 16 BUN 28 H 19 H Creatinine 0.87 0.76 Estim Creat Clear Calc 60.9 69.6 Estimated GFR > 60 > 60 Random Glucose 119 H 108 Calcium 9.7 8.7 D Magnesium 1.8 Ferritin 154 Total Bilirubin 0.4 AST 20 ALT 12 Alkaline Phosphatase 67 Lactate Dehydrogenase 297 H Total Creatine Kinase 73 Troponin I High Sens 23.8 H 21.5 H C-Reactive Protein 3.45 H B-Natriuretic Peptide 1174 H Total Protein 7.2 Albumin 4.0 COVID-19 (CHARLINE) Positive A COVID-19 Clin Com See Note Imaging Radiologist's impression: Impressions Chest X-Ray 06/30/23 23:55 IMPRESSION: Bilateral mid to lower lung opacities could be areas of atelectasis/infiltrate or possibly edema. There is congestion here centrally Head CT 07/01/23 00:00 IMPRESSION: No acute finding. Some decreased attenuation is noted in the white matter left parietal could represent small vessel ischemic change. Given the history I would consider MR to fully evaluate Assessment and Plan (1) Acute hypoxemic respiratory failure: Status: Acute (2) Congestive heart failure: Status: Acute (3) COVID-19: Status: Acute Plan 58-year-old female with background of lupus and crest syndrome along with multiple sclerosis was presenting with shortness of breath in the setting of COVID-19 infection. Physical examination is concerning for congestive heart failure. Difficult to say how much of the lung findings are due to COVID-19 versus fluid but she clearly looks overloaded. Agree with IV diuretics. She has pressure-like feeling in the chest for 1 week persistently. I think this is likely due to reflux related with crest syndrome. We will check echocardiogram tomorrow to assess LV function as well as PA pressures. Continue supportive care for COVID-19 otherwise. Thank you for allowing me to participate in the care of your patient. Please feel free to contact me if you have any questions. Time Spent With Patient Time: Total time managing care of this patient today ____ minutes. Procedures Date of Service Date of Service: 07/01/23
[2023-07-01] MEDS: traZODone HCL 50 MG TABLET 150 MG PO (21:14)
[2023-07-02] MEDS: traMADoL HCL 50 MG TABLET PO (02:03)
[2023-07-02] MEDS: Enoxaparin Sodium 40 MG/0.4 ML SYRINGE SUBCUT (02:05)
[2023-07-02 03:47] VITALS: BP 104/65; PULSE 91; RESP 18; TEMP 37; O2SAT 91
[2023-07-02] MEDS: Omeprazole 20 MG CAPSULE.DR PO (05:04)
--- NOTE | 2023-07-02 07:00 | CA_ITS ---
Transthoracic Echocardiogram Patient (Last, First, Middle): Yaritza Ye A Gender: Female Date of : 1965 Age: 58 Procedure Date: 07/02/2023 Procedure Type: Transthoracic Echocardiogram Location: [facility] – [place] Height: 162.56 cm Weight: 63.05 kg BSA: 1.68 m2 Heart Rate: 90 bpm BP: 106 / 62 mmHg Facility Designer: Referring MD: Adan Goyal MD Symptoms: CHF Study Quality: Adequate ECG Rhythm: Sinus Conclusions: - The left ventricular systolic function is normal. The calculated ejection fraction is 60% by biplane method. - There is mild aortic valve regurgitation. - There is mild to moderate mitral valve regurgitation. - There is mild tricuspid valve regurgitation. Findings Left Ventricle Normal left ventricular cavity size. There is normal left ventricular wall thickness. The left ventricular systolic function is normal. The calculated ejection fraction is 60% by biplane method. There is no evidence of regional wall motion abnormalities. Diastolic function is normal for age. Right Ventricle Normal right ventricular cavity size and systolic function. Atria Both atria are normal in size. Aortic Valve There is a normal trileaflet aortic valve. There is mild thickening of the aortic valve. There is no aortic valve stenosis. There is mild aortic valve regurgitation. Mitral Valve The mitral valve appears normal. There is mild to moderate mitral valve regurgitation. There is no mitral valve stenosis. Pulmonic Valve There is trace pulmonic valve regurgitation. Tricuspid Valve Normal tricuspid valve structure. There is mild tricuspid valve regurgitation. There is no evidence of pulmonary hypertension. Great Vessels The sinuses of valsalva and asc aorta are normal in size. Venous The inferior vena cava is normal in size and collapses greater than 50% with inspiration. Pericardium/Pleural There is a trivial pericardial effusion. Prior Study Comparison No prior study available for comparison. Measurements 2D Linear Measurements IVSd: 0.83 0.6-0.9/0.6-1.0 cm LVIDd: 4.88 3.9-5.3/4.2-5.9 cm LVIDd Index: 2.90 2.4-3.2/2.2-3.1 cm/m2 LVIDs: 3.22 2.0-3.6 cm LVPWd: 0.88 0.7-1.1 cm LA Diam: 4.00 2.7-3.8/3.0-4.0 cm LAIDs Index: 2.38 1.5-2.3 cm/m2 LV Mass: 176.10 67-162/88-224 g LV Mass Index: 104.82 43-95/49-115 g/m2 LVOT Diam: 2.00 3.0+(-)1.3 cm 2D Systolic Function EF 4C: 69.60 >55% EF 2C: 49.10 >55% EF BiP: 60.30 >55% Mitral Valve MV Pk E: 0.69 MV PK A: 0.65 MV Decel Time: 160.00 E/A: 1.10 E'Lateral: 8.59 E'Medial: 9.36 E/E' Med: 7.40 E/E' Lat: 8.10 PHT: 47.00 MVA PHT: 4.68 Decel Gordon: 7.79 Aortic Valve AoV Pk Marshall: 1.90 AoV Mn Marshall: 1.23 AoV VTI: 0.35 AoV Pk Grad: 14.00 Aov Mn Grad: 7.00 AMNA Cont.VTI: 1.45 LVOT LVOT Pk Marshall: 0.85 LVOT Mn Marshall: 0.64 LVOT VTI: 0.16 LVOT Pk Grad: 3.00 LVOT Mn Grad: 2.00 LVOT Diam: 2.00 LVOT Area: 3.14 Diastolic Function MV Pk E: 0.69 MV Pk A: 0.65 E/A: 1.10 E'Medial: 9.36 E/E' Med: 7.40 E' Laterial: 8.59 E/E' Lat: 8.10 Right Ventricle TAPSE (mm): 30.00 Tricuspid Valve TR Pk Marshall: 2.75 TR Pk Grad: 30.00 RA Press: 3.00 RVSP: 33.00 Great Vessels Aorta Sinus of Valsalva: 2.80 2.0-3.5 cm Ao Asc: 3.20 2.1-3.4 cm Pulmonary Valve PV Pk Marshall: 1.19 Peak PV Grad: 6.00 Updated in Other Vendor System with Status of Final Addy Patel MD electronically signed on 07/02/2023 2:23:57 PM with status of Final
[2023-07-02 07:18] VITALS: BP 106/62; PULSE 106; RESP 20; TEMP 36.8; O2SAT 94
[2023-07-02 08:25] LABS: B Type Natriuretic Peptide 1623 pg/mL (<100)
[2023-07-02 08:53] LABS: Anion Gap 18 (12-20); Blood Urea Nitrogen 19 mg/dL (9-16); Calcium 8.6 mg/dL (8.4-10.2); Carbon Dioxide 20 mmol/L (22-29); Chloride 100 mmol/L (96-108); Creatinine Clr Calc Pharmacy 65.4; Estimated Glomerular Filt Rate > 60; Glucose Random 121 mg/dL (60-115); Magnesium 1.9 mg/dL (1.6-2.6); Potassium 3.4 mmol/L (3.3-5.1); Sodium 135 mmol/L (135-145)
[2023-07-02] MEDS: Aspirin Enteric Coated 81 MG TABLET.DR PO (08:53)
[2023-07-02] MEDS: Hydroxychloroquine Sulfate 200 MG TABLET 400 MG PO (08:53)
[2023-07-02] MEDS: Furosemide 40 MG/4 ML VIAL IVPUSH ×2 (08:53→17:19)
[2023-07-02] MEDS: buPROPion HCl XL 150 MG TAB.ER.24H PO (08:53)
[2023-07-02] MEDS: Multivitamin TABLET 1 TAB PO (08:54)
[2023-07-02] MEDS: PARoxetine HCL 40 MG TABLET PO (08:54)
[2023-07-02] MEDS: 0.9 % Sodium Chloride Flush 3 ML SYRINGE IVFLUSH ×3 (08:55→20:58)
[2023-07-02] MEDS: NIFEdipine ER 90 MG TAB.ER.24 PO ×2 (08:55→20:57)
[2023-07-02] MEDS: dexAMETHasone 6 MG TABLET PO (08:55)
--- NOTE | 2023-07-02 09:20 | MHC.CM.PN ---
Pt lives at home with significant other, is independent/self-care/ employed. Goal is to return home self-care when medically cleared. Pts significant other to transport home. Offered to assist with HCP completion, will let us know. PCP: Celia MENDEZ
[2023-07-02] MEDS: Remdesivir 100 MG in 0.9 % Sodium Chloride 230 ML 115 MG IV (10:35)
[2023-07-02 11:22] VITALS: BP 103/59; PULSE 89; RESP 20; TEMP 36.7; O2SAT 95
--- NOTE | 2023-07-02 13:35 | P.PNIM_ITS ---
Subjective Subjective Date of Service: 07/02/23 Interval History: still dyspneic + hypoxic Review of Systems Review of Systems: Yes all other systems are reviewed and are negative Physical Exam 2 Vital Signs: Vital Signs: Last Vital Signs Temp 98.1 F 07/02/23 11:22 Pulse 89 07/02/23 11:22 Resp 20 07/02/23 11:22 BP 103/59 L 07/02/23 11:22 Pulse Ox 95 07/02/23 11:22 O2 Del Method Nasal Cannula 07/02/23 11:22 O2 Flow Rate 5 07/02/23 11:22 BMI result Body Mass Index 23.9 Gen: in no acute distress HEENT: sclera anicteric, moist mucus membranes Neck: supple, JVD Lungs: bibasilar inspiratory crackles Heart: regular rate and rhythm, no murmurs Abd: soft, non-tender, non-distended Ext: trace lower extremity edema Skin: warm/well-perfused Neuro: alert and oriented x3, no focal findings Psych: appropriate affect Objective Data Active Medications Acetaminophen (Acetaminophen 325 Mg Tablet) 650 mg PO Q6H PRN PRN Reason: Pain, Mild (Pain Scale 1-3) Aspirin (Aspirin Enteric Coated 81 Mg Tablet.) 81 mg PO DAILY [facility] Last Admin: 07/02/23 08:53 Dose: 81 mg Documented By: KATHERINE Bupropion HCl (Bupropion Hcl Xl 150 Mg Tab.Er.24h) 150 mg PO DAILY [facility] Last Admin: 07/02/23 08:53 Dose: 150 mg Documented By: KATHERINE Dexamethasone (Dexamethasone 6 Mg Tablet) 6 mg PO DAILY [facility] Last Admin: 07/02/23 08:55 Dose: 6 mg Documented By: KATHERINE Enoxaparin Sodium (Enoxaparin Sodium 40 Mg/0.4 Ml Syringe) 40 mg SUBCUT Q24H [facility] Last Admin: 07/02/23 02:05 Dose: 40 mg Documented By: CHICHO Furosemide (Furosemide 40 Mg/4 Ml Vial) 40 mg IVPUSH BID@0900,1800 [facility]; Protocol Hydroxychloroquine Sulfate (Hydroxychloroquine Sulfate 200 Mg Tablet) 400 mg PO DAILY [facility] Last Admin: 07/02/23 08:53 Dose: 400 mg Documented By: KATHERINE Remdesivir 100 mg/ Sodium (Chloride) 230 mls @ 115 mls/hr IV Q24H [facility] Stop: 07/05/23 12:59 Last Infusion: 07/02/23 13:34 Dose: Infused Documented By: KATHERINE Melatonin (Melatonin 3 Mg Tablet) 6 mg PO BEDTIME PRN PRN Reason: Insomnia Multivitamins/Vitamin C (Multivitamin Tablet) 1 tab PO DAILY [facility] Last Admin: 07/02/23 08:54 Dose: 1 tab Documented By: KATHERINE Nifedipine (Nifedipine Er 90 Mg Tab.Er.24) 90 mg PO BID [facility]; Protocol Last Admin: 07/02/23 08:55 Dose: 90 mg Documented By: KATHERINE Omeprazole (Omeprazole 20 Mg Capsule.Dr) 20 mg PO DAILY@0600 [facility] Last Admin: 07/02/23 05:04 Dose: 20 mg Documented By: CHICHO Ondansetron HCl (Ondansetron Hcl 4 Mg/2 Ml Vial) 4 mg IVPUSH Q8H PRN PRN Reason: Nausea and Vomiting Paroxetine HCl (Paroxetine Hcl 40 Mg Tablet) 40 mg PO DAILY [facility] Last Admin: 07/02/23 08:54 Dose: 40 mg Documented By: KATHERINE Sodium Chloride (0.9 % Sodium Chloride Flush 3 Ml Syringe) 3 ml IVFLUSH QSHIFT [facility] Last Admin: 07/02/23 08:55 Dose: 3 ml Documented By: KATHERINE Tramadol HCl (Tramadol Hcl 50 Mg Tablet) 50 mg PO Q6H PRN PRN Reason: Pain, Moderate(Pain Scale 4-6) Last Admin: 07/02/23 02:03 Dose: 50 mg Documented By: CHICHO Trazodone HCl (Trazodone Hcl 50 Mg Tablet) 150 mg PO BEDTIME [facility] Last Admin: 07/01/23 21:14 Dose: 150 mg Documented By: ADAM Labs 07/01/23 05:11 07/02/23 07:38 Labs: Laboratory Results - last 24 hr 07/02/23 07:38 Anion Gap 18 Estim Creat Clear Calc 65.4 Estimated GFR > 60 Random Glucose 121 H Calcium 8.6 Magnesium 1.9 B-Natriuretic Peptide 1623 H Assessment and Plan (1) COVID-19: Status: Acute (2) Congestive heart failure: Status: Acute (3) Acute hypoxemic respiratory failure: Status: Acute Plan d2 58yo F with MS and SLE, HTN, GERD, mood disorder presenting with dyspnea + hypoxia, positive Covid-19 test 5d prior to presentation Covid-19 infection - dexamethasone 06/30-07/09/23, remdesivir 06/30-07/04/23, trend CRP suspected new-onset CHF, unknown EF - increase furosemide from 40 mg daily to 40 mg bid, follow I/O + lytes + BNP, Cardiology consulted, TTE pending acute hypoxic resp failure - wean O2 as tolerated, currently on 5L O2 SLE - continue hydroxychloroquine GERD - PPI HTN - continue nifedipine MS - outpt Neurology f/u mood disorder - trazodone, paroxetine, bupropion VTE ppx - LMWH dispo - eventual home In my clinical judgment, the patient requires continued inpatient hospitalization for the following reasons: IV diuresis, hypoxia Time Spent With Patient Time: Total time managing care of this patient today __40__ minutes. Quality Stroke Does the patient have a stroke diagnosis?: No VTE Prior VTE?: No VTE Risk Level:: Medical - moderate - high VTE Device Contraindication: Treatment Not Indicated VTE Drug Contraindication: N/A - Med Ordered
[2023-07-02 15:21] VITALS: BP 107/55; PULSE 87; RESP 20; TEMP 36.7; O2SAT 93
--- NOTE | 2023-07-02 19:11 | PC.NURSE ---
Pt is very polite and cooperative with all facets of care except bed alarm usage. Pt was educated about risk of de-saturation d/t current respiratory illness. Pt advised to call staff to aid with O2 tank when going to the bathroom to avoid desaturating, however pt continues to go w/o calling for help. Pt educated on how to use portable O2 tank as stop-gap
[2023-07-02 19:22] VITALS: BP 115/57; PULSE 88; RESP 20; TEMP 37; O2SAT 96
[2023-07-02 20:56] VITALS: BP 110/58; PULSE 76
[2023-07-02] MEDS: traZODone HCL 50 MG TABLET 150 MG PO (20:57)
[2023-07-03] VITALS (8 sets, daily range): BP systolic 99–155; BP diastolic 56–73; PULSE 51–93; RESP 16–22; TEMP 36.4–37.9; O2SAT 93–100
[2023-07-03] MEDS: Omeprazole 20 MG CAPSULE.DR PO (06:09)
[2023-07-03] MEDS: Enoxaparin Sodium 40 MG/0.4 ML SYRINGE SUBCUT (06:09)
[2023-07-03 07:40] LABS: Hematocrit 31.1 % (37.0-47.0); Hemoglobin 10.9 g/dl (12.0-16.0); Mean Corpuscular Hemoglobin 32.1 pg (27.0-33.0); Mean Corpuscular Volume 91.5 fL (80.0-98.0); Mean Platelet Volume 10.2 fL (9.4-12.3); Platelet Count 273 X10*3/uL (160-400); Red Cell Distribution Width 11.8 % (11.0-16.0); White Blood Count 8.5 X10*3/uL (4.8-10.8)
[2023-07-03 08:08] LABS: B Type Natriuretic Peptide 2189 pg/mL (<100)
[2023-07-03] MEDS: Hydroxychloroquine Sulfate 200 MG TABLET 400 MG PO (08:37)
[2023-07-03] MEDS: traMADoL HCL 50 MG TABLET PO ×2 (08:38→16:19)
[2023-07-03] MEDS: Multivitamin TABLET 1 TAB PO (08:38)
[2023-07-03] MEDS: buPROPion HCl XL 150 MG TAB.ER.24H PO (08:38)
[2023-07-03] MEDS: 0.9 % Sodium Chloride Flush 3 ML SYRINGE IVFLUSH ×2 (08:38→21:12)
[2023-07-03] MEDS: PARoxetine HCL 40 MG TABLET PO (08:38)
[2023-07-03] MEDS: dexAMETHasone 6 MG TABLET PO (08:38)
[2023-07-03] MEDS: Aspirin Enteric Coated 81 MG TABLET.DR PO (08:39)
[2023-07-03] MEDS: Furosemide 40 MG/4 ML VIAL IVPUSH (08:41)
[2023-07-03 08:46] LABS: Anion Gap 16 (12-20); Blood Urea Nitrogen 15 mg/dL (9-16); C Reactive Protein 9.59 mg/dL (< or = 0.50); Calcium 8.4 mg/dL (8.4-10.2); Carbon Dioxide 24 mmol/L (22-29); Chloride 102 mmol/L (96-108); Creatinine Clr Calc Pharmacy 82.7; Estimated Glomerular Filt Rate > 60; Glucose Random 83 mg/dL (60-115); Magnesium 1.9 mg/dL (1.6-2.6); Potassium 2.6 mmol/L (3.3-5.1); Sodium 139 mmol/L (135-145)
[2023-07-03] MEDS: Potassium Chloride ER 20 MEQ TAB.ER.PRT 40 MEQ PO (12:22)
[2023-07-03] MEDS: Potassium Chloride/H20 10 MEQ/100 ML PIGGYBACK 100 MEQ IV ×4 (12:24→21:33)
[2023-07-03] MEDS: Remdesivir 100 MG in 0.9 % Sodium Chloride 230 ML 115 MG IV (12:33)
--- NOTE | 2023-07-03 12:37 | P.PNIM_ITS ---
Subjective Subjective Date of Service: 07/03/23 Interval History: No edema but quite short of breath No fever Review of Systems Review of Systems: Yes all other systems are reviewed and are negative Physical Exam 2 Vital Signs: Vital Signs: Last Vital Signs Temp 100.2 F 07/03/23 11:21 Pulse 70 07/03/23 11:21 Resp 20 07/03/23 11:21 BP 107/59 L 07/03/23 11:21 Pulse Ox 96 07/03/23 11:21 O2 Del Method Nasal Cannula 07/03/23 11:21 O2 Flow Rate 4.5 07/03/23 11:21 BMI result Body Mass Index 23.9 Gen: in no acute distress HEENT: sclera anicteric, moist mucus membranes Neck: supple Lungs: bilateral inspiratory crackles Heart: regular rate and rhythm, no murmurs Abd: soft, non-tender, non-distended Ext: no edema Skin: warm/well-perfused Neuro: alert and oriented x3, no focal findings Psych: appropriate affect Objective Data Active Medications Acetaminophen (Acetaminophen 325 Mg Tablet) 650 mg PO Q6H PRN PRN Reason: Pain, Mild (Pain Scale 1-3) Aspirin (Aspirin Enteric Coated 81 Mg Tablet.) 81 mg PO DAILY [facility] Last Admin: 07/03/23 08:39 Dose: 81 mg Documented By: REFUGIO Bupropion HCl (Bupropion Hcl Xl 150 Mg Tab.Er.24h) 150 mg PO DAILY [facility] Last Admin: 07/03/23 08:38 Dose: 150 mg Documented By: REFUGIO Dexamethasone (Dexamethasone 6 Mg Tablet) 6 mg PO DAILY [facility] Last Admin: 07/03/23 08:38 Dose: 6 mg Documented By: REFUGIO Enoxaparin Sodium (Enoxaparin Sodium 40 Mg/0.4 Ml Syringe) 40 mg SUBCUT Q24H [facility] Last Admin: 07/03/23 06:09 Dose: 40 mg Documented By: JANEE Furosemide (Furosemide 40 Mg/4 Ml Vial) 40 mg IVPUSH BID@0900,1800 [facility]; Protocol Last Admin: 07/03/23 08:41 Dose: 40 mg Documented By: REFUGIO Hydroxychloroquine Sulfate (Hydroxychloroquine Sulfate 200 Mg Tablet) 400 mg PO DAILY [facility] Last Admin: 07/03/23 08:37 Dose: 400 mg Documented By: REFUGIO Remdesivir 100 mg/ Sodium (Chloride) 230 mls @ 115 mls/hr IV Q24H [facility] Stop: 07/05/23 12:59 Last Infusion: 07/02/23 13:34 Dose: Infused Documented By: KATHERINE Potassium Chloride (Potassium Chloride/H20) 10 meq in 100 mls @ 100 mls/hr IV Q1H [facility] Stop: 07/03/23 14:44 Melatonin (Melatonin 3 Mg Tablet) 6 mg PO BEDTIME PRN PRN Reason: Insomnia Multivitamins/Vitamin C (Multivitamin Tablet) 1 tab PO DAILY [facility] Last Admin: 07/03/23 08:38 Dose: 1 tab Documented By: REFUGIO Nifedipine (Nifedipine Er 90 Mg Tab.Er.24) 90 mg PO BID [facility]; Protocol Last Admin: 07/02/23 20:57 Dose: 90 mg Documented By: JANEE Omeprazole (Omeprazole 20 Mg Capsule.Dr) 20 mg PO DAILY@0600 [facility] Last Admin: 07/03/23 06:09 Dose: 20 mg Documented By: JANEE Ondansetron HCl (Ondansetron Hcl 4 Mg/2 Ml Vial) 4 mg IVPUSH Q8H PRN PRN Reason: Nausea and Vomiting Paroxetine HCl (Paroxetine Hcl 40 Mg Tablet) 40 mg PO DAILY [facility] Last Admin: 07/03/23 08:38 Dose: 40 mg Documented By: REFUGIO Sodium Chloride (0.9 % Sodium Chloride Flush 3 Ml Syringe) 3 ml IVFLUSH QSHIFT [facility] Last Admin: 07/03/23 08:38 Dose: 3 ml Documented By: REFUGIO Tramadol HCl (Tramadol Hcl 50 Mg Tablet) 50 mg PO Q6H PRN PRN Reason: Pain, Moderate(Pain Scale 4-6) Last Admin: 07/03/23 08:38 Dose: 50 mg Documented By: REFUGIO Trazodone HCl (Trazodone Hcl 50 Mg Tablet) 150 mg PO BEDTIME [facility] Last Admin: 07/02/23 20:57 Dose: 150 mg Documented By: JANEE Labs 07/03/23 07:22 07/03/23 07:22 Labs: Laboratory Results - last 24 hr 07/03/23 07:22 MCV 91.5 MCH 32.1 MCHC 35.0 RDW 11.8 Plt Count 273 MPV 10.2 Absolute Nucleated RBC 0.000 Nucleated RBC % (auto) 0.0 Anion Gap 16 Estim Creat Clear Calc 82.7 Estimated GFR > 60 Random Glucose 83 Calcium 8.4 Magnesium 1.9 C-Reactive Protein 9.59 H B-Natriuretic Peptide 2189 H Assessment and Plan (1) COVID-19: Status: Acute (2) Congestive heart failure: Status: Acute (3) Acute hypoxemic respiratory failure: Status: Acute Plan d3 58yo F with MS, CREST, SLE, GERD, mood disorder presenting with dyspnea + hypoxia, positive Covid-19 test 5d prior to presentation acute hypoxic resp failure due to Covid-19 infection - dexamethasone 06/30-07/09/23, remdesivir 06/30-07/04/23, trend CRP - wean O2 as tolerated, currently on 5L O2 volume overload - no evidence of CHF on TTE. discuss with Cardiology: - The left ventricular systolic function is normal. The calculated ejection fraction is 60% by biplane method. - There is mild aortic valve regurgitation. - There is mild to moderate mitral valve regurgitation. - There is mild tricuspid valve regurgitation. - continue furosemide, follow I/O + lytes + BNP. urinated 2800 mL yesterday CREST - hold nifedipine for soft BP SLE - continue hydroxychloroquine GERD - PPI MS - outpt Neurology f/u mood disorder - trazodone, paroxetine, bupropion VTE ppx - LMWH dispo - eventual home In my clinical judgment, the patient requires continued inpatient hospitalization for the following reasons: IV diuresis, hypoxia Time Spent With Patient Time: Total time managing care of this patient today __35__ minutes. Quality Stroke Does the patient have a stroke diagnosis?: No VTE Prior VTE?: No VTE Risk Level:: Medical - moderate - high VTE Device Contraindication: Treatment Not Indicated VTE Drug Contraindication: N/A - Med Ordered
--- NOTE | 2023-07-03 15:38 | PM.PNCARD ---
Subjective Subjective Date of Service: 07/03/23 Interval history: Seen at 12pm. She is basically here for COVID infection but in this context, thought to have also been congestive heart failure. She states that she has had pericarditis many years ago but nothing else cardiac-johnson recently. Otherwise, slowly recovering. She states her breathing is shallow but otherwise okay. No swelling in her feet. Review of Systems Review of Systems Yes all other systems are reviewed and are negative Constitutional: Reports as per HPI and Reports no additional constitutional complaints Eyes: Reports as per HPI and Denies no additional eye complaints Denies system reviewed and no additional complaints, except as documented and Reports as per HPI Cardiovascular: Reports as per HPI, Reports no additional cardiovascular complaints, Denies acrocyanosis, Denies cool extremities, Denies chest pain, Denies leg edema, Denies lightheadedness, Denies palpitations and Reports dyspnea Respiratory: Reports as per HPI, Denies no additional respiratory complaints and Reports dyspnea Gastrointestinal: Reports as per HPI and Denies no additional gastrointestinal complaints Genitourinary: Reports as per HPI Musculoskeletal: Reports no additional musculoskeletal complaints and Reports as per HPI Skin/Breast: Reports system reviewed and no additional complaints, except as docu Reports system reviewed and no additional complaints, except as documented and Reports as per HPI Psychiatric: Reports no additional psychiatric complaints and Reports as per HPI Endocrine: Reports no additional endocrine complaints, Reports as per HPI and Denies palpitations Hematologic/Lymphatic: Reports no additional hematologic/lymphatic complaints and Reports as per HPI Allergic/Immunologic: Reports no additional allergic/immunologic complaints and Reports as per HPI Physical Exam Vital Signs: Last Vital Signs Temp 100.2 F 07/03/23 11:21 Pulse 70 07/03/23 11:21 Resp 20 07/03/23 11:21 BP 107/59 L 07/03/23 11:21 Pulse Ox 96 07/03/23 11:21 O2 Del Method Nasal Cannula 07/03/23 11:21 O2 Flow Rate 4.5 07/03/23 11:21 BMI result Body Mass Index 23.9 Const General: comfortable and no acute distress Orientation/consciousness: patient oriented x3 HEENT Other: Unremarkable Head: Yes normal to inspection Neck Neck: Yes normal visual inspection Chest Chest palpation & inspection: normal inspection of the chest Resp Other: Inspiratory crackles. Cardio Palpation: normal PMI Heart sounds: S1 normal heart sound present, S2 normal heart sound present, no gallops, no murmurs and no rubs GI Palpation (GI): Soft to palpation Back/Spine/Pelvis Other: unremarkable Skin General skin exam: no rashes or lesions noted Neuro General: patient oriented x3 Extrem General: Yes normal to inspection Psych Mental Status: mental status grossly normal Objective Labs and Meds 07/03/23 07:22 07/03/23 07:22 Lab results: Laboratory Results - last 24 hr 07/03/23 07:22 WBC 8.5 RBC 3.40 L Hgb 10.9 L Hct 31.1 L MCV 91.5 MCH 32.1 MCHC 35.0 RDW 11.8 Plt Count 273 MPV 10.2 Absolute Nucleated RBC 0.000 Nucleated RBC % (auto) 0.0 Sodium 139 Potassium 2.6 L D Chloride 102 Carbon Dioxide 24 Anion Gap 16 BUN 15 Creatinine 0.64 Estim Creat Clear Calc 82.7 Estimated GFR > 60 Random Glucose 83 Calcium 8.4 Magnesium 1.9 C-Reactive Protein 9.59 H B-Natriuretic Peptide 2189 H Progress Note: A&P Assessment and plan (1) Acute hypoxemic respiratory failure: Status: Acute (2) COVID-19: Status: Acute Plan Based on echocardiogram, she does not really have any clear cardiac dysfunction. Biventricular function seems preserved. There is [id number] mitral regurgitation mild tricuspid regurgitation. IVC size appears to be within range and also with normal collapsibility. Cardiac BNP is over 2000. Low-grade troponin level peaking at 23.8. Inflammatory marker-CRP is very high. COVID is positive. Overall, confusing picture. She has active COVID infection and high cardiac BNP but no clear echocardiographic evidence of cardiomyopathy. Uncertain if the BNP is just to the COVID infection itself. Other possibilities something like pericardial constriction but still would expect a large dilated IVC. Clinically, she has mild abdominal distention but no clear-cut peripheral edema. Okay to continue IV diuretics for now. If still concern, we may have to repeat another echocardiogram in a few days time. Discussed with Dr. Hoang. Time Spent With Patient Time: Total time managing care of this patient today ____ minutes. Progress Note: Quality Stroke Does the patient have a stroke diagnosis?: No Procedures Date of Service Date of Service: 07/03/23
[2023-07-03] MEDS: traZODone HCL 50 MG TABLET 150 MG PO (21:04)
[2023-07-04] VITALS (8 sets, daily range): BP systolic 140–166; BP diastolic 63–77; PULSE 48–63; RESP 16–20; TEMP 36.2–37.1; O2SAT 96–100
[2023-07-04] MEDS: Enoxaparin Sodium 40 MG/0.4 ML SYRINGE SUBCUT (01:41)
[2023-07-04] MEDS: Omeprazole 20 MG CAPSULE.DR PO (06:08)
[2023-07-04 06:46] LABS: Anion Gap 14 (12-20); Blood Urea Nitrogen 13 mg/dL (9-16); Calcium 8.8 mg/dL (8.4-10.2); Carbon Dioxide 27 mmol/L (22-29); Chloride 102 mmol/L (96-108); Creatinine Clr Calc Pharmacy 75.6; Estimated Glomerular Filt Rate > 60; Glucose Random 81 mg/dL (60-115); Potassium 3.6 mmol/L (3.3-5.1); Sodium 139 mmol/L (135-145)
[2023-07-04 06:52] LABS: B Type Natriuretic Peptide 1303 pg/mL (<100)
[2023-07-04 06:53] LABS: D Dimer High Sensitivity 234 NG/ML
[2023-07-04] MEDS: 0.9 % Sodium Chloride Flush 3 ML SYRINGE IVFLUSH ×2 (09:30→19:34)
[2023-07-04] MEDS: Hydroxychloroquine Sulfate 200 MG TABLET 400 MG PO (09:31)
[2023-07-04] MEDS: Furosemide 40 MG/4 ML VIAL IVPUSH (09:31)
[2023-07-04] MEDS: PARoxetine HCL 40 MG TABLET PO (09:31)
[2023-07-04] MEDS: Remdesivir 100 MG in 0.9 % Sodium Chloride 230 ML 115 MG IV (09:31)
[2023-07-04] MEDS: buPROPion HCl XL 150 MG TAB.ER.24H PO (09:32)
[2023-07-04] MEDS: Multivitamin TABLET 1 TAB PO (09:32)
[2023-07-04] MEDS: traMADoL HCL 50 MG TABLET PO (09:32)
[2023-07-04] MEDS: dexAMETHasone 6 MG TABLET PO (09:32)
[2023-07-04] MEDS: Aspirin Enteric Coated 81 MG TABLET.DR PO (09:32)
--- NOTE | 2023-07-04 09:35 | P.PNIM_ITS ---
Subjective Subjective Date of Service: 07/04/23 Interval History: No edema but quite short of breath, on 5L O2 No fever Feels drained , weak BNP coming down Review of Systems Review of Systems: Yes all other systems are reviewed and are negative Physical Exam 2 Vital Signs: Vital Signs: Last Vital Signs Temp 98.5 F 07/04/23 07:25 Pulse 52 07/04/23 07:25 Resp 20 07/04/23 07:25 BP 152/71 H 07/04/23 07:25 Pulse Ox 99 07/04/23 07:25 O2 Del Method Nasal Cannula 07/04/23 07:25 O2 Flow Rate 5 07/04/23 07:25 BMI result Body Mass Index 23.9 Constitutional - Awake and Alert, No apparent distress Eyes - PERRLA, EOMI Cardiovascular - S1S2, RRR, No edema Respiratory - Normal lung expansion, slightly increased WOB, increased respiratory effort when speaking and with exertion, No respiratory distress, bibasilar crackles Extremities - no calf tenderness bilaterally, no swelling Musculoskeletal - Normal inspection, normal ROM Skin - Warm/Dry Neurological - Alert & oriented x3 Psychological - Appropriate affect Objective Data Active Medications Acetaminophen (Acetaminophen 325 Mg Tablet) 650 mg PO Q6H PRN PRN Reason: Pain, Mild (Pain Scale 1-3) Aspirin (Aspirin Enteric Coated 81 Mg Tablet.) 81 mg PO DAILY [facility] Last Admin: 07/03/23 08:39 Dose: 81 mg Documented By: REFUGIO Bupropion HCl (Bupropion Hcl Xl 150 Mg Tab.Er.24h) 150 mg PO DAILY [facility] Last Admin: 07/03/23 08:38 Dose: 150 mg Documented By: REFUGIO Dexamethasone (Dexamethasone 6 Mg Tablet) 6 mg PO DAILY [facility] Last Admin: 07/03/23 08:38 Dose: 6 mg Documented By: REFUGIO Enoxaparin Sodium (Enoxaparin Sodium 40 Mg/0.4 Ml Syringe) 40 mg SUBCUT Q24H [facility] Last Admin: 07/04/23 01:41 Dose: 40 mg Documented By: VANESSA Furosemide (Furosemide 40 Mg/4 Ml Vial) 40 mg IVPUSH DAILY [facility]; Protocol Hydroxychloroquine Sulfate (Hydroxychloroquine Sulfate 200 Mg Tablet) 400 mg PO DAILY [facility] Last Admin: 07/03/23 08:37 Dose: 400 mg Documented By: HO.MOOREA Remdesivir 100 mg/ Sodium (Chloride) 230 mls @ 115 mls/hr IV Q24H [facility] Stop: 07/05/23 12:59 Last Infusion: 07/03/23 17:11 Dose: Infused Documented By: REFUGIO Melatonin (Melatonin 3 Mg Tablet) 6 mg PO BEDTIME PRN PRN Reason: Insomnia Multivitamins/Vitamin C (Multivitamin Tablet) 1 tab PO DAILY [facility] Last Admin: 07/03/23 08:38 Dose: 1 tab Documented By: REFUGIO Nifedipine (Nifedipine Er 90 Mg Tab.Er.24) 90 mg PO BID [facility]; Protocol Last Admin: 07/02/23 20:57 Dose: 90 mg Documented By: JANEE Omeprazole (Omeprazole 20 Mg Capsule.Dr) 20 mg PO DAILY@0600 [facility] Last Admin: 07/04/23 06:08 Dose: 20 mg Documented By: VANESSA Ondansetron HCl (Ondansetron Hcl 4 Mg/2 Ml Vial) 4 mg IVPUSH Q8H PRN PRN Reason: Nausea and Vomiting Paroxetine HCl (Paroxetine Hcl 40 Mg Tablet) 40 mg PO DAILY [facility] Last Admin: 07/03/23 08:38 Dose: 40 mg Documented By: REFUGIO Sodium Chloride (0.9 % Sodium Chloride Flush 3 Ml Syringe) 3 ml IVFLUSH QSHIFT [facility] Last Admin: 07/03/23 21:12 Dose: 3 ml Documented By: VANESSA Sodium Chloride (Sodium Chloride 0.65 % Nasal 44 Ml Sprbtl) 1 spray NOSTRIL-B Q1H PRN PRN Reason: nasal dryness Tramadol HCl (Tramadol Hcl 50 Mg Tablet) 50 mg PO Q6H PRN PRN Reason: Pain, Moderate(Pain Scale 4-6) Last Admin: 07/03/23 16:19 Dose: 50 mg Documented By: REFUGIO Trazodone HCl (Trazodone Hcl 50 Mg Tablet) 150 mg PO BEDTIME [facility] Last Admin: 07/03/23 21:04 Dose: 150 mg Documented By: VANESSA Labs 07/03/23 07:22 07/04/23 06:14 Labs: Laboratory Results - last 24 hr 07/04/23 06:14 D-Dimer High Sensitivty 234 Anion Gap 14 Estim Creat Clear Calc 75.6 Estimated GFR > 60 Random Glucose 81 Calcium 8.8 Magnesium 2.0 B-Natriuretic Peptide 1303 H Assessment and Plan (1) COVID-19: Status: Acute (2) Congestive heart failure: Status: Acute (3) Acute hypoxemic respiratory failure: Status: Acute Plan d3 58yo F with MS, CREST, SLE, GERD, mood disorder presenting with dyspnea + hypoxia, positive Covid-19 test 5d prior to presentation acute hypoxic resp failure due to Covid-19 infection - dexamethasone 06/30-07/09/23, remdesivir 06/30-07/04/23, trend CRP - has been weaned from O2 at rest -ambulatory pulse ox requested volume overload - no evidence of CHF on TTE. discuss with Cardiology: - The left ventricular systolic function is normal. The calculated ejection fraction is 60% by biplane method. - There is mild aortic valve regurgitation. - There is mild to moderate mitral valve regurgitation. - There is mild tricuspid valve regurgitation. - continue furosemide, follow I/O + lytes + BNP. Discussed strict I&O with nursing -Per cardiology, continue diuresis. BNP elevation possibly just r/t COVID-19, less likely pericardial constriction given absence of large dilated IVC. If concern remains for CHF, consider echocardiogram in several days CREST - hold nifedipine for soft BP SLE - continue hydroxychloroquine GERD - PPI MS - outpt Neurology f/u mood disorder - trazodone, paroxetine, bupropion VTE ppx - LMWH dispo - eventual home. Seen by PT, no serevices needed. Encourage oob In my clinical judgment, the patient requires continued inpatient hospitalization for the following reasons: IV diuresis, hypoxia Time Spent With Patient Time: Total time managing care of this patient today ____ minutes. Quality Stroke Does the patient have a stroke diagnosis?: No VTE Prior VTE?: No VTE Risk Level:: Medical - moderate - high VTE Device Contraindication: Treatment Not Indicated VTE Drug Contraindication: N/A - Med Ordered
--- NOTE | 2023-07-04 14:32 | MHC.CM.PN ---
EMR reviewed and per MD rounds, pt is not medically cleared for D/C due to high O2 requirements and increased BNP. CM will continue to follow.
[2023-07-04] MEDS: traZODone HCL 50 MG TABLET 150 MG PO (19:33)
[2023-07-04] MEDS: Melatonin 3 MG TABLET 6 MG PO (19:34)
[2023-07-05 03:44] VITALS: BP 146/81; PULSE 66; RESP 16; TEMP 36.1; O2SAT 94
[2023-07-05] MEDS: Enoxaparin Sodium 40 MG/0.4 ML SYRINGE SUBCUT (05:35)
[2023-07-05] MEDS: Omeprazole 20 MG CAPSULE.DR PO (05:35)
[2023-07-05 07:26] LABS: Anion Gap 16 (12-20); Blood Urea Nitrogen 18 mg/dL (9-16); Calcium 9.1 mg/dL (8.4-10.2); Carbon Dioxide 27 mmol/L (22-29); Chloride 101 mmol/L (96-108); Creatinine Clr Calc Pharmacy 70.6; Estimated Glomerular Filt Rate > 60; Glucose Random 83 mg/dL (60-115); Potassium 3.5 mmol/L (3.3-5.1); Sodium 140 mmol/L (135-145)
[2023-07-05 07:45] VITALS: BP 128/56; PULSE 78; RESP 18; TEMP 36.9; O2SAT 96
[2023-07-05 08:12] LABS: B Type Natriuretic Peptide 794 pg/mL (<100)
[2023-07-05] MEDS: buPROPion HCl XL 150 MG TAB.ER.24H PO (09:57)
[2023-07-05] MEDS: Aspirin Enteric Coated 81 MG TABLET.DR PO (09:57)
[2023-07-05] MEDS: Furosemide 40 MG TABLET PO (09:57)
[2023-07-05] MEDS: Hydroxychloroquine Sulfate 200 MG TABLET 400 MG PO (09:57)
[2023-07-05] MEDS: 0.9 % Sodium Chloride Flush 3 ML SYRINGE IVFLUSH (09:58)
[2023-07-05] MEDS: Multivitamin TABLET 1 TAB PO (09:58)
[2023-07-05] MEDS: PARoxetine HCL 40 MG TABLET PO (09:58)
[2023-07-05] MEDS: dexAMETHasone 6 MG TABLET PO (09:58)
--- NOTE | 2023-07-05 10:44 | MHC.CM.PN ---
EMR reviewed and per MD rounds pt is medically cleared for dc. DP: return home, self care, at transport at 12:00pm.
[2023-07-05] MEDS: Remdesivir 100 MG in 0.9 % Sodium Chloride 230 ML 115 MG IV (10:47)
--- NOTE | 2023-07-05 11:07 | P.DS_ITS ---
DS: Providers Provider Date of Service: 07/05/23 Date of admission: 07/01/23 01: Date of discharge: 07/05/23 Primary care physician: SANTO Vincent Attending physician on admission: Adan Goyal Consults: 07/01/23: Consult to Cardiology Routine Consulting [place] [facility] Reason for consultation: CHF Has provider been notified: Yes Attending physician on discharge: Saad Finnegan Discharging clinician: Fe Mchugh DS: Diagnosis Discharge Diagnosis (1) COVID-19: Status: Acute (2) Congestive heart failure: Status: Acute (3) Acute hypoxemic respiratory failure: Status: Acute DS: Summary Hospital Course Hospital Course: HPI on admission by Dr. Goyal 07/01/23 This is a 58-year-old female with pertinent history of MS, mood disorder, essential hypertension, gastroesophageal reflux disease who presents to the emergency department for evaluation of dyspnea. Patient states she has been having dyspnea, worse with exertion that started 5 days prior to presentation. Patient tested positive for COVID-19 on Sunday. States she has been vaccinated x4 for COVID-19. Also has been having cough and chills. Endorses orthopnea and generalized weakness. No history of congestive heart failure and has never been on diuretics. No fever, abdominal discomfort, changes in urinary or bowel habits. In the emergency department, imaging with pulmonary edema and BNP found to be el evated. Patient was found to be hypoxemic and requiring 3 L supplemental oxygen Hospital Course: 58-year-old female admitted to the hospital with COVID-19 with associated acute hypoxemic respiratory failure and COVID encephalopathy. Mentation had improved upon admission. Patient was treated with IV remdesivir x4 days as well as IV Decadron 6 mg x 5 days. The patient has been successfully weaned from supplemental O2. Vitals have otherwise remained stable throughout admission, no fevers. She was also evaluated by Cardiology due to the significantly elevated BNP of unclear significance. Troponin level was unremarkable. No evidence of myocarditis or pericarditis. She did have echocardiogram which revealed normal systolic LV function with EF 60-65% and normal diastolic function. She was diuresed given pulmonary edema noted on chest x-ray with 40 mg IV Lasix daily. She was weaned to 40 mg oral. On day of discharge, BNP improved to 700 and patient is in no distress, with oximetry 98% on room air. She appears euvolemic on exam. Will discharge on 20 mg p.o. Lasix times 10 days with recommendation to repeat BMP and BNP in 1 week. If BNP remains elevated, recommend cardiology referral for further assessment and repeat echocardiogram. Patient reports she still feels drained and very fatigued. Seen by PT who does not recommend services at this time. Follow up with PCP in 1 week. Continue isolation precautions per CDC recommendations. Continue decadron 6mg PO x5 days Hospital course by problem: acute hypoxic resp failure due to Covid-19 infection - dexamethasone 06/30-07/09/23, remdesivir 06/30-07/04/23, trend CRP - has been weaned from O2 at rest -ambulatory pulse ox97% -continue decadron x5 days volume overload - no evidence of CHF on TTE. discuss with Cardiology: - The left ventricular systolic function is normal. The calculated ejection fraction is 60% by biplane method. - There is mild aortic valve regurgitation. - There is mild to moderate mitral valve regurgitation. - There is mild tricuspid valve regurgitation. - continue furosemide, follow I/O + lytes + BNP. Discussed strict I&O with nursing -Per cardiology, continue diuresis. BNP elevation possibly just r/t COVID-19, less likely pericardial constriction given absence of large dilated IVC. If concern remains for CHF, consider echocardiogram in several days CREST - hold nifedipine for soft BP SLE - continue hydroxychloroquine GERD - PPI MS - outpt Neurology f/u mood disorder - trazodone, paroxetine, bupropion VTE ppx - LMWH Time spent discussing smoking cessation with patient: more than 10 minutes Status at Discharge Functional status at discharge: independent ambulation Overall status at discharge: patient is not back to baseline Time Spent with Patient Time attestation: Total time managing care of this patient today ____ minutes. Discharge coordination time: Greater than 30 minutes Quality: Safe Use of Opioids Does Pt have an Active Cancer Diagnosis on the Problem List?: No Quality: Stroke Does the patient have a stroke diagnosis?: No Physical Exam Vital Signs: Vital Signs: Last Vital Signs Temp 98.5 F 07/05/23 07:45 Pulse 78 07/05/23 07:45 Resp 18 07/05/23 07:45 BP 128/56 L 07/05/23 07:45 Pulse Ox 96 07/05/23 07:45 O2 Del Method Room Air 07/05/23 07:45 O2 Flow Rate 97 07/04/23 16:17 BMI result Body Mass Index 23.9 DS: Data Data Completed and Pending Labs on day of discharge: Laboratory Results - last 24 hr 07/05/23 06:28 Sodium 140 Potassium 3.5 Chloride 101 Carbon Dioxide 27 Anion Gap 16 BUN 18 H Creatinine 0.75 Estim Creat Clear Calc 70.6 Estimated GFR > 60 Random Glucose 83 Calcium 9.1 B-Natriuretic Peptide 794 H Discharge Plan Discharge Anticipated Discharge Date/Time: 07/05/23 10:37 Patient Disposition: Home, Self-Care Discharge Diagnosis: COVID-19, hypoxia, elevated BNP Referrals: Celia Natarajan FNP [Primary Care Provider] - 1 Week Discharge Medications: New furosemide [Lasix] 20 mg tablet 20 mg PO DAILY Qty: 10 0RF dexamethasone 6 mg Tablet 6 mg PO DAILY Qty: 5 0RF Continued multivitamin Tablet 1 tab PO DAILY aspirin 81 mg Tablet,Delayed Release (Dr/Ec) 81 mg PO DAILY nifedipine 90 mg tablet extended release 24hr 90 mg PO BID pantoprazole 40 mg tablet,delayed release (DR/EC) 40 mg PO DAILY trazodone 150 mg tablet 150 mg PO BEDTIME cranberry 400 mg Capsule 400 mg PO DAILY Rx Instructions: administer with a meal hydroxychloroquine 200 mg tablet 400 mg PO DAILY paroxetine HCl 40 mg tablet 40 mg PO DAILY bupropion HCl 150 mg tablet extended release 24 hr 150 mg PO QAM Discontinued Paxlovid 300 mg (150 mg x 2)-100 mg Tablets,Dose Pack See Rx Instructions .ROUTE .COMPLEX Rx Instructions: take TWO 150 mg tablets of nirmatrelvir with ONE 100 mg tablet of ritonavir twice daily for 5 days Discharge Orders: Discharge Order (Routine); Ordered 07/05/23 Ordered By: Fe Mchugh Diet: Advance to usual diet Activity on Discharge: As tolerated Stand Alone Forms: Patient Portal Discharge page Other Ambulatory Orders: Basic Metabolic Panel Fasting (Routine) Timeframe: 1 Week Facility: [facility] - Location: Laboratory Ordered By: Fe Mchugh B Type Natriuretic Peptide (Routine) Timeframe: 1 Week Facility: [facility] - Location: Laboratory Ordered By: Fe Mchugh Care Plan Goals: see below Health Concerns: COVID-19 Immunosuppression Hypoxia Altered mental status Elevated BNP/pulmonary edema Plan of Treatment: COVID-19 with hypoxia and encephalopathy -Treated with IV remdesivir (antiviral) and IV decadron (steroid), successfully weaned from O2 and improvement in mental status -Continue decadron 6mg daily orally x 5 days -Isolation period for severe COVID-19 requiring hospitalization is 10 days total from symptom onset Elevated BNP/pulmonary and abdominal edema -Your echo was normal without evidence of congestive heart failure -You were treated with lasix IV for diuresis -BNP (cardiac marker) continues to trend down -Recommend continuing lasix 20mg daily orally x 10 days -Repeat BMP and BNP [place] [facility] [place] 1 week. If BNP increases, we will have you follow up with cardiology, otherwise follow up with PCP in 1 week Assessment: See above
== END 2023-07-05 14:00 | disposition home or self-care (01) | DRG 177 ==
LOC: HO.ED 07-01 00:52 → HO.EDOVER 07-01 01:35 → HO.IMC 07-01 09:52
PROVIDERS: Family Medicine; Physician Assistant Medical; Admitting Provider Student in an Organized Health Care Education/Training Program; Emergency Provider Emergency Medicine; PCP Nurse Practitioner Family; Visit Provider Physician Assistant
DX: U07.1 COVID-19 (principal); G93.41 Metabolic encephalopathy; M34.1 CR(E)ST syndrome; M32.9 Systemic lupus erythematosus, unspecified; E87.6 Hypokalemia; I50.9 Heart failure, unspecified; F39 Unspecified mood [affective] disorder; I08.3 Combined rheumatic disorders of mitral, aortic and tricuspid valves; G35 Multiple sclerosis; K21.9 Gastro-esophageal reflux disease without esophagitis; F17.210 Nicotine dependence, cigarettes, uncomplicated; Z71.6 Tobacco abuse counseling; Z79.82 Long term (current) use of aspirin; Z79.899 Other long term (current) drug therapy
CPT/HCPCS: 36415; 70450; 71045; 80048; 80053; 82550; 82728; 83615; 83735; 83880; 84484; 85025; 85027; 85379; 85610; 85730; 86140; 87635; 93005; 93306; 97162; 99285; J0248; J1650; J1940; J2405; J8540; Q9957

== ENCOUNTER → 2023-06-30 23:26 | Outpatient (BNV) | payer OTHER, SELFPAY | PROVIDERS: Emergency Provider Emergency Medicine; Visit Provider Student in an Organized Health Care Education/Training Program | DX: U07.1 COVID-19 (principal); I50.9 Heart failure, unspecified; J96.01 Acute respiratory failure with hypoxia | CPT/HCPCS: 99222; 99232; 99239; 99499 ==

== ENCOUNTER 2023-07-01 01:23 | Outpatient (BNV) | payer OTHER, SELFPAY | END 2023-07-02 07:00 | PROVIDERS: Admitting Provider Student in an Organized Health Care Education/Training Program; Emergency Provider Emergency Medicine; Visit Provider Internal Medicine | DX: I34.0 Nonrheumatic mitral (valve) insufficiency (principal); I36.1 Nonrheumatic tricuspid (valve) insufficiency | CPT/HCPCS: 93306 ==

== ENCOUNTER → 2023-07-01 01:23 | Outpatient (BNV) | payer OTHER, SELFPAY | PROVIDERS: Admitting Provider Student in an Organized Health Care Education/Training Program; Emergency Provider Emergency Medicine; Visit Provider Internal Medicine Cardiovascular Disease | DX: J96.01 Acute respiratory failure with hypoxia (principal); U07.1 COVID-19 | CPT/HCPCS: 99223; 99233 ==